=== PATIENT | female | born 1955 | race Caucasian/White ===

== ENCOUNTER 2016-11-20 13:26 | Outpatient (CLI) | payer MEDICARE, OTHER ==
[2016-11-20 20:30] LABS: #Basophils 0.1 thou/uL (0.0-0.2); #Eosinphils 0.1 thou/uL (0.0-0.7); #Lymphocytes 1.9 thou/uL (1.20-3.40); #Monocytes 0.2 thou/uL (0.11-0.59); #Neutrophils 3.5 thou/uL (1.40-6.50); %Basophils 1.1 % (0.0-1.0); %Eosinophils 1.8 % (0.0-10.0); %Monocytes 2.9 % (0.0-10.0); Hematocrit 51.6 % (36.0-47.0); Mean Platelet Volume 5.9 fL (7.4-10.4); Red Blood Cell (RBC) Count 5.65 mill/uL (4.20-5.40); White Blood Cell (WBC) Count 5.7 thou/uL (4.8-10.8)
[2016-11-20 20:48] LABS: ALT (SGPT) 10 U/L (0-55); AST (SGOT) 12 U/L (5-34); Alkaline Phosphatase 99 U/L (40-150); Anion Gap 15 mmol/L (10-20); BUN (Urea Nitrogen) 11 mg/dL (9.8-20.1); Bilirubin, Total 0.4 mg/dL (0.2-1.2); Calc. Creatinine Clearance 0 mL/min (70-130); Calcium 9.6 mg/dL (7.8-10.44); Carbon Dioxide 23 mmol/L (23-31); Chloride 107 mmol/L (98-107); Estimated GFR-MDRD 65; Globulin 3.2 g/dL (2.4-3.5); LDL Cholesterol, Calculated 144 mg/dL; Protein, Total 7.2 g/dL (5.8-8.1)
== END 2016-11-20 13:27 | disposition home or self-care (01) ==
LOC: HPCALD 13:26
PROVIDERS: ATTEND Family Medicine
DX: Z13.6 Encounter for screening for cardiovascular disorders (principal); Z11.59 Encounter for screening for other viral diseases; I10 Essential (primary) hypertension
CPT/HCPCS: 80053; 80061; 85025; 86803

== ENCOUNTER 2017-02-01 13:36 | Emergency (ER) | payer MEDICARE, OTHER ==
[2017-02-01] MEDS ORDERED: Ibuprofen 800 MG TAB ONE (14:04)
[2017-02-01] MEDS ORDERED: HYDROcodone/Acetaminophen 10/325 mg Tablet ONE (14:05)
[2017-02-01 14:19] LABS: Bilirubin Negative (Negative); Blood, Urine Negative (Negative); Clarity Clear (Clear); Glucose, Urine (Dipstick) Negative (Negative); Leukocyte Negative (Negative); Nitrite Negative (Negative); Protein, Urine (Dipstick) Negative (Neg-Trace); Specific Gravity, Urine 1.025 (1.005-1.030); Urobilinogen 0.2 mg/dL (0.2-1.0); pH, Urine 5.5 (5.0-9.0)
--- NOTE | 2017-02-01 16:31 | RAD ---
LUMBAR SPINE THREE VIEWS 02/01/17 No compression fracture was seen. There is no disc space narrowing. Minimal anterolisthesis of L4 on L5 is present. this appears to be due to facet arthritis which is quite prominent at this level and L5-S1. IMPRESSION: Prominent facet arthritis in the lower lumbar levels. POS: HOME
== END 2017-02-01 16:30 | disposition home or self-care (01) ==
LOC: BURERS 13:36
DX: M54.5 Low back pain (principal); K59.00 Constipation, unspecified; F41.9 Anxiety disorder, unspecified; F32.9 Major depressive disorder, single episode, unspecified; I10 Essential (primary) hypertension; E78.5 Hyperlipidemia, unspecified; F17.210 Nicotine dependence, cigarettes, uncomplicated; J44.9 Chronic obstructive pulmonary disease, unspecified
CPT/HCPCS: 72100; 81003; 99283

== ENCOUNTER 2017-06-09 16:12 | Inpatient (IN) | payer MEDICARE, OTHER ==
[2017-06-09 16:30] LABS: #Basophils 0.1 thou/uL (0.0-0.2); #Eosinphils 0.1 thou/uL (0.0-0.7); #Monocytes 0.2 thou/uL (0.11-0.59); #Neutrophils 3.4 thou/uL (1.40-6.50); %Basophils 1.1 % (0.0-1.0); %Eosinophils 1.7 % (0.0-10.0); %Lymphocytes 34.6 % (21.0-51.0); %Monocytes 3.6 % (0.0-10.0); %Neutrophils 59.1 % (42.0-75.0); Hemoglobin 15.9 g/dL (12.0-16.0); Mean Corpuscular Hemoglobin 29.3 pg (27.0-31.0); Mean Corpuscular Volume 86.2 fl (81.0-99.0); Mean Platelet Volume 7.2 fL (7.4-10.4); Platelet Count 203 thou/uL (130-400); RBC Distribution Width 12.3 % (11.5-14.5); Red Blood Cell (RBC) Count 5.43 mill/uL (4.20-5.40); White Blood Cell (WBC) Count 5.7 thou/uL (4.8-10.8)
[2017-06-09] MEDS ORDERED: methylPREDNISolone Sod Succ/PF 125 MG/2 ML VIAL ONE (16:35)
[2017-06-09 16:42] LABS: ALT (SGPT) 11 U/L (8-55); AST (SGOT) 12 U/L (5-34); Alkaline Phosphatase 116 U/L (40-150); Anion Gap 12 mmol/L (10-20); BUN (Urea Nitrogen) 10 mg/dL (9.8-20.1); Bilirubin, Total 0.8 mg/dL (0.2-1.2); Calc. Creatinine Clearance 0 mL/min (70-130); Calcium 9.4 mg/dL (7.8-10.44); Carbon Dioxide 26 mmol/L (23-31); Chloride 107 mmol/L (98-107); Estimated GFR-MDRD 66; Globulin 3.5 g/dL (2.4-3.5); Glucose 110 mg/dL (80-115); Lipase 29 U/L (8-78); Protein, Total 7.5 g/dL (6.0-8.3); Sodium 141 mmol/L (136-145)
[2017-06-09 16:48] LABS: CKMB 0.7 ng/mL (0-6.6); Troponin I Less than 0.010 ng/mL (< 0.028)
[2017-06-09] MEDS ORDERED: Magnesium Sulfate 2 GM/100 ML BAG ONE (16:50)
[2017-06-09] MEDS ORDERED: Albuterol Sulfate 1.25 MG/3 ML NEB ONE (16:51)
--- NOTE | 2017-06-09 17:00 | RAD ---
PORTABLE CHEST: Date: 06/09/17 An AP portable film at 1614 hours is compared with a 11/30/14 study. The heart is normal in size and the lungs are clear. No infiltrate or effusion seen. The lungs do se em mildly hyperexpanded. IMPRESSION: No acute thoracic finding. POS: HOME
[2017-06-09] MEDS ORDERED: Albuterol Sulfate 2.5 mg/0.5 ml Neb NEB PRN (18:29)
[2017-06-09] MEDS ORDERED: Acetaminophen 325 MG TAB PO PRN (18:30)
[2017-06-09] MEDS ORDERED: Ondansetron ODT 4 MG TAB SL PRN (18:30)
[2017-06-09] MEDS ORDERED: Ondansetron HCl/PF 4 MG/2 ML Vial IVP PRN (18:30)
[2017-06-09] MEDS ORDERED: HYDROcodone/Acetaminophen 5/325 mg Tablet PO PRN (18:30)
[2017-06-09 18:34] VITALS: BMI 21.9
[2017-06-09] MEDS: Dextrose 5 %-0.45 % NaCl 1,000 ML IV SCH (20:36)
[2017-06-09] MEDS ORDERED: traMADol HCl 50 MG TAB PO PRN (21:34)
[2017-06-09] MEDS: methylPREDNISolone Sod Succ/PF 125 MG/2 ML VIAL IVP SCH (22:03)
--- NOTE | 2017-06-10 05:13 | HP ---
DATE OF ADMISSION: 06/09/2017 CHIEF COMPLAINT: Chest pain and dyspnea. HISTORY OF PRESENT ILLNESS: A 61-year-old female called the [facility] earlier today with complaints of chest pain and shortness of breath and was subsequently advised to seek further evaluation at the emergency department, she thus presented to [facility] with the aforementioned symptoms, which had begun rather acutely. In the emergency department, an EKG was done and displayed a normal sinus rhythm with normal ST and T-waves with left atrial enlargement. A chest x-ray was done showing no acute thoracic findings. Subsequent lab evaluation was also within normal limits, notably her cardiac enzymes. She was provided normal saline, albuterol nebs, magnesium, DuoNeb, and Solu-Medrol injection in the emergency department, however, remained slightly tachypneic with unresolved respiratory symptoms. She is a chronic smoker with known history of COPD and was recently evaluated in clinical setting for initiation of home supplemental oxygen use. The patient's vital signs are stable. However, as noted, she will be admitted for further treatment of COPD exacerbation with goal to return her to her normal baseline respiratory status. PAST MEDICAL HISTORY: Includes COPD, hypertension, gastroesophageal reflux disease, anxiety with depression, hyperlipidemia, osteoarthritis, insomnia. PAST SURGICAL HISTORY: Cholecystectomy, hysterectomy with one ovary left, and eye surgery. SOCIAL HISTORY: She is a chronic smoker. She is not a regular alcohol drinker. Denies illicit drug use. FAMILY HISTORY: Mother and father are . ALLERGIES: No medication allergies; however, reported allergies to BEE STINGS and CEDAR. CURRENT MEDICATIONS: Amlodipine 10 mg p.o. daily, ibuprofen 400 mg p.o. b.i.d. , tramadol 50 mg p.o. q.6 hours p.r.n., Spiriva inhaled b.i.d., omeprazole 20 mg p.o. daily, atorvastatin 20 mg at bedtime, sertraline 50 mg p.o. daily, temazepam 30 mg p.o. at bedtime, aspirin 81 mg p.o. daily, fenofibrate 145 mg p.o. daily, Proventil inhaler 2 puffs q.6 hours p.r.n., albuterol nebs t.i.d. p.r.n., Brovana 2 inhalations b.i.d., Tylenol with codeine #3 one tablet p.o. q.6 hours p.r.n. REVIEW OF SYSTEMS: General: Patient denies fever, chills, or diaphoresis. Eyes: Denies blurred vision, loss of vision, or pain. Ears, Nose, and Throat: Denies rhinorrhea or congestion. Cardiovascular: Complains of chest pain. Denies palpitations. Respiratory: Complains of cough and shortness of breath. Gastrointestinal: Denies nausea, vomiting, diarrhea, constipation, or abdominal pain. Musculoskeletal: Complains of joint pain. Integumentary: Denies rash, sores, or ulcer. Hematologic: Denies easy bruising. LABORATORY DATA: White blood cell count 5.7, hemoglobin and hematocrit is 15.9 and 46.8, and platelets of 203. Sodium 141, potassium 4.0, BUN and creatinine is 10 and 0.87, glucose is 110, calcium is 9.4. Normal LFTs. Normal cardiac enzymes. BNP is 22, lipase is 29. Chest x-ray shows no acute thoracic findings. PHYSICAL EXAMINATION: VITAL SIGNS: Temperature is 97.8, pulse is 65, respiratory rate is 18, oxygen is 95% on 2 L, and blood pressure is 149/70. GENERAL: She is alert and oriented, in no acute distress. FACE: No asymmetry. EYES: Conjunctivae are clear. Extraocular muscles are intact bilaterally. No discharge. HEAD, EARS, NOSE, AND THROAT: Normocephalic and atraumatic. Moist mucous membranes. NECK: Supple with full range of motion. No lymphadenopathy. CARDIOVASCULAR: Regular rate and rhythm. Normal S1, S2. No murmurs, rubs or gallops. RESPIRATORY: Prolonged expiratory phase with diminished breath sounds. No wheezing or respiratory distress. Nasal cannula is in place. GASTROINTESTINAL: Soft, nontender to palpation. No masses. EXTREMITIES: No clubbing, cyanosis or edema. SKIN: Normal with no rash. NEUROLOGIC: Nonfocal. ASSESSMENT AND PLAN: 1. Chronic obstructive pulmonary disease exacerbation. We will provide scheduled nebulizer treatments with goals to keep oxygen saturation greater than 92%. We will provide IV Solu-Medrol 80 mg q.8 hours with plan to transition to oral steroid therapy. No infectious etiology is noted, thus we would hold antibiotic therapy. I have discussed the need for smoking cessation with patient in regard to her underlying diagnosis of chronic obstructive pulmonary disease; will start Nicotine patch. 2. Hypertension. Patient is hemodynamically stable. We will resume home blood pressure medications. 3. Hyperlipidemia. We will continue home statin. 4. Anxiety and depression. We will continue home selective serotonin reuptake inhibitor. 5. Osteoarthritis. We will resume home pain medications. 6. Prophylaxis. We will resume home proton pump inhibitor and add prophylactic Lovenox dosing to prevent deep venous thrombosis. MTDD
[2017-06-10] MEDS ORDERED: Enoxaparin Sodium 30 MG/0.3 ML SYRINGE SC SCH (06:00)
[2017-06-10] MEDS: methylPREDNISolone Sod Succ/PF 125 MG/2 ML VIAL IVP SCH ×3 (06:08→22:07)
[2017-06-10] MEDS: Dextrose 5 %-0.45 % NaCl 1,000 ML IV SCH ×2 (08:42→19:33)
[2017-06-10] MEDS: Nicotine 21 MG PATCH TD SCH (08:44)
[2017-06-10] MEDS: Atorvastatin Calcium 10 MG TAB PO SCH (08:44)
[2017-06-10] MEDS: Albuterol Sulfate 1.25 MG/3 ML NEB NEB SCH (08:45)
[2017-06-10] MEDS ORDERED: PROVENTIL INHALER 6.7 G (200 INHALATIONS) INH SCH (09:00)
[2017-06-10] MEDS ORDERED: traMADol HCl 50 MG TAB PO PRN (13:53)
[2017-06-11] MEDS ORDERED: Enoxaparin Sodium 40 MG/0.4 ML SYRINGE SC SCH ×2 (06:00)
[2017-06-11] MEDS: methylPREDNISolone Sod Succ/PF 125 MG/2 ML VIAL IVP SCH (06:14)
[2017-06-11 06:36] VITALS: TEMP 98.6
[2017-06-11] MEDS: Albuterol Sulfate 1.25 MG/3 ML NEB NEB SCH (09:29)
[2017-06-11] MEDS: Atorvastatin Calcium 10 MG TAB PO SCH (09:32)
[2017-06-11] MEDS: Dextrose 5 %-0.45 % NaCl 1,000 ML IV SCH (09:36)
[2017-06-11] MEDS: Nicotine 21 MG PATCH TD SCH (09:49)
[2017-06-11 09:50] VITALS: BP 146/67
--- NOTE | 2017-06-11 12:05 | DIS ---
DATE OF ADMISSION: 06/09/2017 DATE OF DISCHARGE: 06/11/2017 ADMISSION DIAGNOSES: Chronic obstructive pulmonary disease exacerbation, hypertension, hyperlipidemia, anxiety, and depression, osteoarthritis, and smoker. DISCHARGE DIAGNOSES: Chronic obstructive pulmonary disease exacerbation, hypertension, hyperlipidemia, anxiety, and depression, osteoarthritis and smoker with resolution of chronic obstructive pulmonary disease exacerbation, gastroesophageal reflux disease, and insomnia. PROCEDURES: Chest x-ray on 06/09/2017, displayed no acute thoracic findings. HOSPITAL COURSE: A 61-year-old female, chronic smoker with history of COPD, presented with an Emergency Department with complaints of chest pain and dyspnea. Cardiac workup was negative and it was felt that her chest pain was largely from a combination of her frequent coughing coinciding with her underlying history of anxiety. The patient was treated with scheduled nebulized treatments, supplemental oxygen and IV Solu-Medrol; however, remained tachypneic, so she was admitted for continued care. Her respiratory status quickly reverted to her baseline. Prior to her admission, she had recently been set up with home supplemental oxygen use and thus she will have this going forward. Her vital signs remained stable throughout, remained afebrile and was hemodynamically stable. The patient feels to be at her baseline status and is agreeable to discharge to her home setting at this time. DISPOSITION: We will discharge home and followup with myself in the clinic next week. DISCHARGE MEDICATIONS: New medications will be prednisone 20 mg p.o. daily x5 days and also nicotine patch. She will resume her home medications, which include amlodipine 10 mg p.o. daily, tramadol 50 mg p.o. q.6 hours p.r.n, Spiriva inhaled b.i.d., omeprazole 20 mg p.o. daily, atorvastatin 20 mg p.o. at bedtime, sertraline 50 mg p.o. daily, temazepam 30 mg p.o. at bedtime, aspirin 81 mg p.o. daily, fenofibrate 145 mg p.o. daily, Proventil inhaler 2 puffs q.6 hours p.r.n., albuterol nebs t.i.d. p.r.n., Brovana 2 inhalations b.i.d. and Tylenol with codeine, and Tylenol #3 p.o. q.6 hours p.r.n. [facility]
[2017-06-12] MEDS ORDERED: Enoxaparin Sodium 30 MG/0.3 ML SYRINGE SC SCH (06:00)
== END 2017-06-11 10:02 | disposition home or self-care (01) | DRG 192 ==
LOC: BURERS 16:12 → BURMED 17:35
PROVIDERS: ADMIT Family Medicine; ATTEND Family Medicine
DX: J44.1 Chronic obstructive pulmonary disease with (acute) exacerbation (principal); I10 Essential (primary) hypertension; E78.5 Hyperlipidemia, unspecified; F41.9 Anxiety disorder, unspecified; F32.9 Major depressive disorder, single episode, unspecified; M19.90 Unspecified osteoarthritis, unspecified site; F17.210 Nicotine dependence, cigarettes, uncomplicated; K21.9 Gastro-esophageal reflux disease without esophagitis; G47.00 Insomnia, unspecified
CPT/HCPCS: 36415; 71010; 80053; 82553; 83690; 83880; 84484; 85025; 93005; 94760; 96361; 96365; 96375; A4216; J1650; J2930; J3475; J7611; J7620

== ENCOUNTER 2020-02-07 09:26 | Emergency (ER) | payer MEDICARE, OTHER ==
[2020-02-07] MEDS ORDERED: Ventolin HFA Inhaler 60 PUFF INHALER ONE (10:02)
[2020-02-07 10:42] LABS: #Eosinphils 0.1 thou/uL (0.0-0.7); #Lymphocytes 1.5 thou/uL (1.20-3.40); #Monocytes 0.3 thou/uL (0.11-0.59); %Basophils 0.8 % (0.0-1.0); %Lymphocytes 30.6 % (21.0-51.0); %Monocytes 5.9 % (0.0-10.0); %Neutrophils 60.7 % (42.0-75.0); Hemoglobin 15.9 g/dL (12.0-16.0); Mean Corpuscular Hemoglobin 28.9 pg (27.0-31.0); Mean Corpuscular Volume 93.1 fL (78.0-98.0); Mean Platelet Volume 7.7 fL (7.4-10.4); Platelet Count 179 thou/uL (130-400); RBC Distribution Width 13.9 % (11.5-14.5); Red Blood Cell (RBC) Count 5.51 mill/uL (4.20-5.40)
[2020-02-07 11:01] LABS: ALT (SGPT) 11 U/L (8-55); AST (SGOT) 12 U/L (5-34); Alkaline Phosphatase 76 U/L (40-110); Anion Gap 12 mmol/L (10-20); BUN (Urea Nitrogen) 11 mg/dL (9.8-20.1); Bilirubin, Total 0.6 mg/dL (0.2-1.2); Calc. Creatinine Clearance 0 mL/min (70-130); Calcium 9.3 mg/dL (7.8-10.44); Carbon Dioxide 28 mmol/L (23-31); Chloride 108 mmol/L (98-107); Estimated GFR-MDRD 64; Globulin 3.1 g/dL (2.4-3.5); Glucose 93 mg/dL (80-115); Potassium 4.3 mmol/L (3.5-5.1); Protein, Total 7.1 g/dL (6.0-8.3); Sodium 144 mmol/L (136-145)
[2020-02-07] MEDS ORDERED: predniSONE 20 MG TAB ONE (11:12)
[2020-02-07] MEDS ORDERED: hydrOXYzine 25 MG TAB ONE (11:12)
[2020-02-07] MEDS ORDERED: Aspirin Chewable 81 MG TAB ONE (11:13)
--- NOTE | 2020-02-07 15:02 | RAD ---
PORTABLE CHEST: DATE: 02/07/2020. FINDINGS: An AP portable film at 1020 is compared with an 06/09/2017 study. The heart is normal in size. There is no vascular congestion, edema, or pleural effusion. No lobar infiltrate was seen. Slight haziness over the left lateral hemithorax is felt to be due to positioni ng and overlying breast tissue. IMPRESSION: No definite acute finding. POS: HOME
== END 2020-02-07 12:15 | disposition home or self-care (01) ==
LOC: BURERS 09:26
DX: J44.1 Chronic obstructive pulmonary disease with (acute) exacerbation (principal); E78.5 Hyperlipidemia, unspecified; E78.00 Pure hypercholesterolemia, unspecified; F41.9 Anxiety disorder, unspecified; F32.9 Major depressive disorder, single episode, unspecified; F17.210 Nicotine dependence, cigarettes, uncomplicated; M19.90 Unspecified osteoarthritis, unspecified site; Z71.6 Tobacco abuse counseling
CPT/HCPCS: 71045; 80053; 83605; 83880; 84484; 85025; 93005; 99406; J7512; J7620

== ENCOUNTER 2021-04-23 08:09 | Emergency (ER) | payer MEDICARE, OTHER ==
[2021-04-23] MEDS ORDERED: HYDROcodone/Acetaminophen 10/325 mg Tablet ONE (08:27)
[2021-04-23] MEDS ORDERED: AMOXicillin 250 MG CAP ONE (08:28)
[2021-04-23] MEDS ORDERED: Ondansetron ODT 4 MG TAB ONE (08:28)
[2021-04-23] MEDS ORDERED: Lidocaine 2% w/Epinephrine 1:200K 20 ML VIAL ONE (08:28)
[2021-04-23] MEDS ORDERED: Boostrix 0.5 ML (Tdap) VIAL ONE (08:53)
== END 2021-04-23 09:03 | disposition home or self-care (01) ==
LOC: BURERS 08:09
DX: L02.414 Cutaneous abscess of left upper limb (principal); E78.5 Hyperlipidemia, unspecified; E78.00 Pure hypercholesterolemia, unspecified; I10 Essential (primary) hypertension; J44.9 Chronic obstructive pulmonary disease, unspecified; F17.210 Nicotine dependence, cigarettes, uncomplicated; Z23 Encounter for immunization; Z79.899 Other long term (current) drug therapy
CPT/HCPCS: 10060; 90471; 90715; Q0162